=== PATIENT | female | born 1950 | race Caucasian/White ===

== ENCOUNTER 2017-04-20 04:20 | Emergency (ER) | payer OTHER, BC ==
[~2017-04-20] VITALS: Ht 157.5 cm; Wt 86.2 kg
[~2017-04-20 04:20] MED LIST: ALLDSR60 PO; CEPH500C PO
[2017-04-20 04:22] VITALS: Ht 157.5 cm; Wt 86.2 kg
[2017-04-20] MEDS ORDERED: SODIUM CHLORIDE 0.9% 1000ML 1,000 ML IV STA (04:36)
[2017-04-20] MEDS ORDERED: ACETAMINOPHEN 500 MG TAB PO STA (04:36)
[2017-04-20 05:07] LABS: BASO % 0.2 %; BASO ABS # 0.03 K/uL (0-0.2); COMPLETE YES; EOS % 0.4 %; HEMATOCRIT 39.1 % (37-47); IG% 0.3 %; LYMPH % 4.5 %; LYMPH ABS # 0.62 K/uL (1.2-3.4); MEAN CELL VOLUME 97.8 fL (80-100); MEAN CORPUSCULAR HEMOGLOBIN 32.3 pg (25-34); MEAN PLATELET VOLUME 9.8 fL (7.4-10.4); NEUT % 88.6 %; PLATELET COUNT 234 K/uL (130-400); WHITE BLOOD COUNT 13.73 K/uL (4.8-10.8)
[2017-04-20 05:29] LABS: BUN/CREATININE RATIO 19.4 (10-20); C-REACTIVE PROTEIN 7.74 mg/dl (0-0.29); CALCIUM 8.7 mg/dl (8.5-10.1); CREATININE 0.75 mg/dl (0.60-1.20); POTASSIUM 3.7 mmol/L (3.5-5.1)
[2017-04-20] MEDS ORDERED: CEFTRIAXONE SOD INJ 1 GM ADDVIAL IV STA (05:40)
[2017-04-20] MEDS ORDERED: CEFD1CAP14 PO (05:50)
[2017-04-20] MEDS ORDERED: BCTCR TOP (05:50)
--- NOTE | 2017-04-20 05:51 | EMERGENCY ROOM VISIT NOTE ---
History Report prepared by Loreta: Vangie Rodriguez Under the Supervision of: Dr. Sunny Thompson M.D. First contact with patient: 04:29 Chief Complaint: ALLERGIC REACTION Stated Complaint: ALLERGIC REACTION History of Present Illness The patient is a 67 year old female who presents to the Emergency Room with complaints of constant facial swelling beginning one day ago. She feels that her symptoms are related to an allergic reaction. She reports trouble with breathing. The patient also complains of a productive cough, and states that she coughed up a large amount of sputum this morning. She denies other rashes, dry lips, or swollen lips. The patient takes Mucinex, and Sloane for seasonal allergies. She is allergic to Zyrtec. Source of History: patient Onset: one day ago Position: head (face) Quality: other (swelling) Timing: constant Associated Symptoms: + cough (productive) Note: The patient denies lip swelling or dry lips. Review of Systems See HPI for pertinent positives & negatives. A total of 10 systems reviewed and were otherwise negative. Past Medical & Surgical Medical Problems: (1) No Known Active Medical Problems (2) Pneumonia (3) Sinusitis Surgical Problems: (1) History of appendectomy Family History FH: HTN (hypertension) FH: cancer FH: kidney disease FHx: diabetes mellitus FHx: heart disease Social History Smoking Status: Former Smoker Housing Status: lives with family Occupation Status: unemployed Current/Historical Medications Scheduled Cefdinir (Omnicef), 300 MG PO Q12H Cephalexin Monohydrate (Keflex), 500 MG PO QID Fexofenadine/Pseudoephedrine (Sloane-D 12HR 60/120MG), 1 TAB PO Q12PRN Mupirocin (Bactroban), 1 APPLN TOP TID Allergies Coded Allergies: Adhesives (Verified Allergy, Mild, 12/31/13) Cetirizine (Verified Allergy, Mild, LOC, 12/31/13) Iodine (Verified Allergy, Mild, HIVES SWELLING, 12/31/13) Pseudoephedrine (Verified Allergy, Mild, HYPERACTIVE, 12/31/13) Physical Exam Vital Signs Date Time Temp Pulse Resp B/P Pulse Ox O2 Delivery O2 Flow Rate FiO2 04/20/17 06:20 37.5 89 18 138/77 96 04/20/17 05:04 Room Air 04/20/17 04:22 38.1 109 20 170/81 94 Room Air Physical Exam GENERAL: Patient is uncomfortable and in mild distress. HEENT: No acute trauma, normocephalic atraumatic, mucous membranes moist, no nasal congestion, no scleral icterus. NECK: No stridor, no adenopathy, no meningismus, trachea is midline. LUNGS: No dyspnea. Clear to auscultation and equal bilaterally. No wheeze, no rhonchi. HEART: Tachycardic rate with a regular rhythm. No murmurs, rubs, gallops appreciated. ABDOMEN: Soft, nontender, bowel sounds positive, no masses appreciated, no peritonitis. BACK: No midline tenderness, no CVA tenderness EXTREMITIES: Normal motion all extremities, no cyanosis, no edema. NEUROLOGIC: Alert and oriented, no acute motor or sensory deficits, no focal weakness, cranial nerves grossly intact. SKIN: dark erythema over bilateral maxillary sinuses extending over nose and forehead into hairline. Impetigo-like blistering over the bridge of the nose. No conjunctival involvement. Medical Decision & Procedures Laboratory Results 04/20/17 04:40 Red Blood Count 4.00, Mean Corpuscular Volume 97.8, Mean Corpuscular Hemoglobin 32.3, Mean Corpuscular Hemoglobin Concent 33.0, Mean Platelet Volume 9.8, Neutrophils (%) (Auto) 88.6, Lymphocytes (%) (Auto) 4.5, Monocytes (%) (Auto) 6.0, Eosinophils (%) (Auto) 0.4, Basophils (%) (Auto) 0.2, Neutrophils # (Auto) 12.15, Lymphocytes # (Auto) 0.62, Monocytes # (Auto) 0.83, Eosinophils # (Auto) 0.06, Basophils # (Auto) 0.03 04/20/17 04:40 Test 04/20/17 04:40 04/20/17 04:55 White Blood Count 13.73 K/uL (4.8-10.8) Red Blood Count 4.00 M/uL (4.2-5.4) Hemoglobin 12.9 g/dL (12.0-16.0) Hematocrit 39.1 % (37-47) Mean Corpuscular Volume 97.8 fL (80-100) Mean Corpuscular Hemoglobin 32.3 pg (25-34) Mean Corpuscular Hemoglobin Concent 33.0 g/dl (32-36) Platelet Count 234 K/uL (130-400) Mean Platelet Volume 9.8 fL (7.4-10.4) Neutrophils (%) (Auto) 88.6 % Lymphocytes (%) (Auto) 4.5 % Monocytes (%) (Auto) 6.0 % Eosinophils (%) (Auto) 0.4 % Basophils (%) (Auto) 0.2 % Neutrophils # (Auto) 12.15 K/uL (1.4-6.5) Lymphocytes # (Auto) 0.62 K/uL (1.2-3.4) Monocytes # (Auto) 0.83 K/uL (0.11-0.59) Eosinophils # (Auto) 0.06 K/uL (0-0.5) Basophils # (Auto) 0.03 K/uL (0-0.2) RDW Standard Deviation 46.0 fL (36.4-46.3) RDW Coefficient of Variation 12.9 % (11.5-14.5) Immature Granulocyte % (Auto) 0.3 % Immature Granulocyte # (Auto) 0.04 K/uL (0.00-0.02) Anion Gap 6.0 mmol/L (3-11) Est Creatinine Clear Calc Drug Dose 73.2 ml/min Estimated GFR () 94.9 Estimated GFR (Non- 81.9 BUN/Creatinine Ratio 19.4 (10-20) Calcium Level 8.7 mg/dl (8.5-10.1) C-Reactive Protein 7.74 mg/dl (0-0.29) Bedside Lactic Acid Venous 1.12 mmol/L (0.90-1.70) Laboratory results as reviewed by me. Medications Administered Medications (Trade) Dose Ordered Sig/Christopher Route Start Time Stop Time Status Last Admin Dose Admin Sodium Chloride (Nss 1000ml) 1,000 ml @ 999 mls/hr Q1H1M STAT IV 04/20/17 04:36 04/20/17 05:36 DC 04/20/17 04:36 999 MLS/HR Acetaminophen (Tylenol Tab) 1,000 mg NOW STAT PO 04/20/17 04:36 04/20/17 04:37 DC 04/20/17 04:53 1,000 MG Ceftriaxone Sodium (Rocephin Inj) 1 gm NOW STAT IV 04/20/17 05:40 04/20/17 05:41 DC 04/20/17 05:40 1 GM ED Course 0432: The patient was evaluated in room B10. A complete history and physical exam was performed. 0436: Ordered Tylenol Tab 1,000 mg PO, Sodium Chloride 1,000 ml @ 999 mls/hr, IV. 0540: Ordered Rocephin Inj 1 gm IV. 0605: Reevaluated the patient. Discussed results and discharge instructions: she verbalized understanding and agreement. The patient is ready for discharge. Medical Decision Differential: Contact Dermatitis, Viral Exanthum, Urticaria, Allergic Reaction, SJS, Toxic Epidermal Necrolysis, Erythema Multiforme, Cellulitis, Scabies, HSV, Varicella, Zoster, Eczema, Staph Scalded Skin, Fungal, amongst other pathologies entertained. 67 yr old female arrives with complaint of bilateral facial allergic reaction. By exam this is clearly cellulitic infection. Vitals reveal mild tachy with fever. Lactic acid looks OK and not hypotensive. The exam is consistent with erysipelas with added mild possible impetigo over bridge of nose. It is not herpetic in nature. There is no crepitus. She is not in septic shock. I suspect this is strep species, which may even be from sinus infection. She has elevated CRP and mild elevation WBC. I discussed fact she would meet criteria for inpatient IV abx, however she makes clear she would like to return home. She feels comfortable watching this closely at home. I have marked area of cellulitis and she is aware of symptoms requiring immediate return to ED. She is aware there is a chance she will worsen. We will treat with IV Rocephin to start and then continue with omnicef as outpatient for increased coverage. Impression Primary Impression: Erysipelas Additional Impression: Cellulitis, face Scribe Attestation The scribe's documentation has been prepared under my direction and personally reviewed by me in its entirety. I confirm that the note above accurately reflects all work, treatment, procedures, and medical decision making performed by me. Departure Information Dispostion Home / Self-Care Prescriptions Mupirocin (Bactroban) 15 Gm Cr 1 APPLN TOP TID for 10 Days, #30 GM Prov: Sunny Thompson M.D. 04/20/17 Cefdinir (Omnicef) 300 Mg Cap 300 MG PO Q12H for 10 Days, #20 CAP Prov: Sunny Thompson M.D. 04/20/17 Referrals Wes Flores M.D. (PCP) Patient Instructions ED Cellulitis Facial, [facility] Problem Qualifiers
[2017-04-20 06:20] VITALS: BP 138/77; PULSE 89; TEMP 37.5; O2SAT 96
== END 2017-04-20 06:25 | disposition home or self-care (01) ==
LOC: C.EDB 04:21
DX: A46 Erysipelas (principal); L03.211 Cellulitis of face; Z86.19 Personal history of other infectious and parasitic diseases; Z90.49 Acquired absence of other specified parts of digestive tract; Z87.891 Personal history of nicotine dependence; Z79.899 Other long term (current) drug therapy; Z88.8 Allergy status to other drugs, medicaments and biological substances; Z91.041 Radiographic dye allergy status; Z91.09 Other allergy status, other than to drugs and biological substances; Z82.49 Family history of ischemic heart disease and other diseases of the circulatory system; Z80.9 Family history of malignant neoplasm, unspecified; Z84.1 Family history of disorders of kidney and ureter; Z83.3 Family history of diabetes mellitus

== ENCOUNTER 2017-04-22 10:26 | Inpatient (IN) | payer OTHER, BC ==
[~2017-04-22] VITALS: Ht 158.8 cm; Wt 86.5 kg
[~2017-04-22 10:26] MED LIST changes: +BCTCR TOP; +CEFD1CAP14 PO
[2017-04-22 11:07] VITALS: BP 146/79; PULSE 66; TEMP 36.8; O2SAT 97
[2017-04-22] MEDS ORDERED: NAPR1TAB9 PO (11:58)
[2017-04-22] MEDS ORDERED: ACET-1311 PO (11:58)
[2017-04-22] MEDS ORDERED: ASPI81TA28 PO (11:58)
--- NOTE | 2017-04-22 11:58 | History and Physical ---
History & Physical Date & Time of Service: April 22, 2017 at 11:54 Chief Complaint: Facial Cellulitis W/ Failed Outpatient Treatment Primary Care Physician: Wes Flores M.D. History of Present Illness Source: patient Patient has had a sinus infection since 04/10. Facial rash started 04/19. Came to ED 04/20 with worsened rash, orbital swelling causing difficulty in opening eyes, fevers (tmax 101), chills, sweats, SOB, tachycardia. Was given IV ceftriaxone in the ED and PO cefdinir on discharge, as per patient' s choice given improvement in ED. Resolution of fevers, and SOB and tachycardia since ED discharge. Rash improved on chin and lower cheeks - Demarcating lines mades in ED verified this. However, since then, has had cephalic spread noted up to hairline and with lateral spread to temples. Currently complaining that rash is pruritic, hot to touch, with intermittent burning. Pain scored as 6/10. Tylenol used for pain, and ice pack- which has been helpful. No changes in vision - no blurring, no halos/lights, double vision or photophobia. Has had ocular discharge with morning crusting. No headache or neck pain. Some ongoing exertional SOB, but not at rest. Also has productive cough with clear sputum. Past Medical/Surgical History Medical Problems: (1) Pneumonia Status: Resolved (2) Sinusitis Status: Resolved Surgical Problems: (1) History of appendectomy Status: Resolved Arash as a child DVT after h/o cardiac arrest with Percocet ?h/o of PE Family History FH: HTN (hypertension) FH: cancer FH: kidney disease FHx: diabetes mellitus FHx: heart disease Social History Smoking Status: Former Smoker (Ex smoker of 34 years ago, with 10 pack year history) Smokeless Tobacco Use: No Alcohol Use: socially (Holidays) Drug Use: none Housing status: lives with family Occupational Status: unemployed Immunizations History of Influenza Vaccine: Yes History of Tetanus Vaccine?: Yes History of Pneumococcal: Yes History of Hepatitis B Vaccine: Yes Multi-Drug Resistant Organisms History of MDRO: No Allergies Coded Allergies: Oxycodone (Verified Allergy, Severe, ANAPHYLAXIS, 04/22/17) patient "went out" Spoke grzegorz Parry ([facility]) who confirmed w patient that she can tolerate acetaminophen Adhesives (Verified Allergy, Mild, 12/31/13) Cetirizine (Verified Allergy, Mild, LOC, 12/31/13) Iodine (Verified Allergy, Mild, HIVES SWELLING, 12/31/13) Pseudoephedrine (Verified Allergy, Mild, HYPERACTIVE, 12/31/13) Home Medications Scheduled Aspirin (Aspirin Ec), 81 MG PO DAILY Cefdinir (Omnicef), 300 MG PO Q12H Cephalexin Monohydrate (Keflex), 500 MG PO QID Fexofenadine/Pseudoephedrine (Sloane-D 12HR 60/120MG), 1 TAB PO Q12PRN Mupirocin (Bactroban), 1 APPLN TOP TID Naproxen (Aleve), 220 MG PO DAILY Scheduled PRN Acetaminophen (Tylenol), 650 MG PO QD PRN for Pain Review of Systems Constitutional: + fatigue, No chills, No fever, No sweats, No weakness Eyes: + discharge, + eye pain, No diplopia, No redness, No worsening of vision ENT: + nasal symptoms (Congestion), No dental problems, No hearing loss, No sore throat, No tinnitus, No unusual epistaxis Respiratory: + cough (worsened), + dyspnea on exertion, + sputum, No dyspnea at rest, No hemoptysis, No wheezing Cardiovascular: + orthopnea (because of facial and nasal fluid. Normal previously), No PND, No chest pain, No claudication, No edema, No palpitations Abdomen: No constipation, No diarrhea, No nausea, No pain, No vomiting Musculoskeletal: No joint pain, No muscle pain Genitourinary - Female: No dysuria, No hematuria Neurologic: No balance problems, No numbness/tingling Integumentary: + color change, + itch, + new/changing skin lesions, + rash Allergic / Immunologic: + hives, + seasonal allergies (mold, mildew, dust, pollen, shellfish), No environmental allergies, No pet sensitivities Physical Exam Vital Signs Date Time Temp Pulse Resp B/P Pulse Ox O2 Delivery O2 Flow Rate FiO2 04/22/17 13:01 Room Air General Appearance: WD/WN, no apparent distress Head: normocephalic, atraumatic Eyes: PERRL, EOMI, + pertinent finding (Periorbital swelling with improvement in eyelid swelling as per patient and daughter) ENT: normal ENT inspection, hearing grossly normal, pharynx normal Neck: supple, thyroid normal, + pertinent finding (cervical adenopathy L>R) Respiratory/Chest: lungs clear, normal breath sounds, no respiratory distress, no accessory muscle use Cardiovascular: regular rate, rhythm, no edema, no murmur, normal peripheral pulses Abdomen/GI: normal bowel sounds, non tender, soft, no organomegaly Extremities/Musculoskelatal: normal inspection, no calf tenderness, normal capillary refill, no pedal edema Neurologic/Psych: alert, normal mood/affect, oriented x 3 Skin: + pertinent finding (Erythema on cheeks B/L extending over bridge of nose and to hairline temporally and superiorly. Rash blanches with pressure. No petechiae. Not seeping. Hot to touch) Diagnostics Laboratory Results Results Past 24 Hours Test 04/22/17 13:54 Range/Units White Blood Count 5.83 4.8-10.8 K/uL Red Blood Count 3.64 4.2-5.4 M/uL Hemoglobin 12.2 12.0-16.0 g/dL Hematocrit 36.1 37-47 % Mean Corpuscular Volume 99.2 80-100 fL Mean Corpuscular Hemoglobin 33.5 25-34 pg Mean Corpuscular Hemoglobin Concent 33.8 32-36 g/dl Platelet Count 232 130-400 K/uL Mean Platelet Volume 9.8 7.4-10.4 fL Neutrophils (%) (Auto) 65.8 % Lymphocytes (%) (Auto) 20.8 % Monocytes (%) (Auto) 9.3 % Eosinophils (%) (Auto) 3.4 % Basophils (%) (Auto) 0.5 % Neutrophils # (Auto) 3.84 1.4-6.5 K/uL Lymphocytes # (Auto) 1.21 1.2-3.4 K/uL Monocytes # (Auto) 0.54 0.11-0.59 K/uL Eosinophils # (Auto) 0.20 0-0.5 K/uL Basophils # (Auto) 0.03 0-0.2 K/uL RDW Standard Deviation 48.1 36.4-46.3 fL RDW Coefficient of Variation 13.1 11.5-14.5 % Immature Granulocyte % (Auto) 0.2 % Immature Granulocyte # (Auto) 0.01 0.00-0.02 K/uL Prothrombin Time 10.3 9.0-12.0 SECONDS Prothromb Time International Ratio 1.0 0.9-1.1 Activated Partial Thromboplast Time 27.8 21.0-31.0 SECONDS Partial Thromboplastin Ratio 1.1 Sodium Level 144 136-145 mmol/L Potassium Level 3.7 3.5-5.1 mmol/L Chloride Level 108 98-107 mmol/L Carbon Dioxide Level 29 21-32 mmol/L Anion Gap 7.0 3-11 mmol/L Blood Urea Nitrogen 16 7-18 mg/dl Creatinine 0.72 0.60-1.20 mg/dl Est Creatinine Clear Calc Drug Dose 77.2 ml/min Estimated GFR () 99.7 Estimated GFR (Non- 86.1 BUN/Creatinine Ratio 22.9 10-20 Random Glucose 105 70-99 mg/dl Calcium Level 9.2 8.5-10.1 mg/dl Impression Assessment and Plan 67 year old female with PMHx of sinus infections presents with worsening facial Cellulitis after failure of outpatient therapy on cefdinir Cellulitis - erythematous, pruritic, tender. completed 3 days treatment with cefdinir - ENT consult - Empiric IV clindamycin 600mg q8h - ID consulted - CT maxillofacial with contrast - pretreated with prednisone 50mg 6 hours prior and prednisone 50mg + IV diphenhydramine 25mg 1 hour prior due to iodine allergy - Mupirocin 2% ointment - PO Diphenhydramine 25mg PRN pruritis - Trend CBC, BMP Dry eyes - Lubricating eye drops Nasal congestion - Claritin VTE Prophylaxis - Enoxaparin 40mg SC Full Code Level of Care Med/Surg Advanced Directives Existing Advance Directive: No Existing Living Will: No Existing Power of Energy Technician: No Existing Health Care Proxy: No Resuscitation Status FULL RESUSCITATION VTE Prophylaxis VTE Risk Assessment Done? Y/N: Yes Risk Level: Moderate Given or contraindicated: Enoxaparin (Lovenox)SQ Social Service Consult None Apply History Resident Physician Supervision Note: I was present with Dr. Kay during the history and exam. I discussed the case with the resident and agree with the findings and plan as documented in the note. Any exceptions or clarifications are listed here. 67 y/o female with h/o cardiac arrest 2/2 percocet and h/o DVT/?PE referred to [facility] [place] for direct admission by Dr. Bladimir Ayala following failure of outpatient therapy for facial cellulitis with underlying bacterial rhinosinusitis. Following IV treatment in the ED with marginal improvement, PO therapy resulted in progressive hot, tender facial rash which extended up the face and a mild occiput headache. Accompanied by congestion/PND and a mildly productive cough of PND. Reports no fever, vision/hearing changes, dizziness, neck pain, CP/SOB. General Appearance: WD/WN, no apparent distress Eye Exam: bilateral eye EOMI, bilateral eye PERRL Ears, Nose, Throat: hearing grossly normal, TMs normal, pharynx normal, nasal congestion Neck: non-tender, full range of motion, supple Respiratory: chest non-tender, lungs clear, normal breath sounds, no respiratory distress Cardiovascular: normal peripheral pulses, regular rate, rhythm, no edema, no murmur Neurologic/Psychiatric: contract loader II-XII nml as tested, alert, normal mood/affect, oriented x 3 Skin Characteristics: other (erythematous swollen, warm rash of the b/l face from the inframaxillary region extending to the scalp which is blanching) Assessment/Plan 67 y/o female h/o recent sinusitis w/ failed outpatient therapy for facial cellulitis Facial cellulitis - otolaryngology consulted, input appreciated - CT face w/w/o w/ prep 2/2 iodine rxn, IV clindamycin, recheck CBC, BMP in AM Eye irritation w/o EOM involvement - eyedrops Nasal congestion w/ recent ABRS - H1 sherly therapy, clinda as above, afrin ( short course), fluticasone nasal spray daily DVT PPX - Lovenox FULL CODE Resident Tracking Resident Involvement: Resident Care Provided Care Provided: Adult Hospital Medicine
[2017-04-22] MEDS ORDERED: DiphenhydrAMINE HCL 50 MG/ML VIAL IV STA (12:31)
[2017-04-22] MEDS ORDERED: ACETAMINOPHEN 325 MG TAB PO PRN ×2 (12:45→13:00)
[2017-04-22] MEDS ORDERED: ONDANSETRON INJ 2 MG/ML 2 ML VIAL IV PRN (13:00)
[2017-04-22] MEDS ORDERED: ALUMINUM/MAGNESIUM/SIMETH (MAALOX MAX) 30 ML UDC PO PRN (13:00)
[2017-04-22] MEDS ORDERED: MAGNESIUM HYDROXIDE SUSP 30 ML UDC PO PRN (13:00)
[2017-04-22] MEDS ORDERED: POLYETHYLENE (MIRALAX) 17 GM PACK PO PRN (13:00)
[2017-04-22 13:01] VITALS: Ht 158.8 cm; Wt 86.5 kg
[2017-04-22] MEDS ORDERED: ARTIFICIAL TEARS OP OINT 3.5 GM TUBE OP PRN (13:30)
[2017-04-22 14:05] LABS: BASO % 0.5 %; BASO ABS # 0.03 K/uL (0-0.2); COMPLETE YES; EOS % 3.4 %; HEMATOCRIT 36.1 % (37-47); IG% 0.2 %; LYMPH % 20.8 %; LYMPH ABS # 1.21 K/uL (1.2-3.4); MEAN CELL VOLUME 99.2 fL (80-100); MEAN CORPUSCULAR HEMOGLOBIN 33.5 pg (25-34); MEAN CORPUSCULAR HGB CONC 33.8 g/dl (32-36); MEAN PLATELET VOLUME 9.8 fL (7.4-10.4); MONO % 9.3 %; NEUT % 65.8 %; PLATELET COUNT 232 K/uL (130-400); RED BLOOD COUNT 3.64 M/uL (4.2-5.4); WHITE BLOOD COUNT 5.83 K/uL (4.8-10.8)
[2017-04-22 14:20] LABS: PARTIAL THROMBOPLASTIN RATIO 1.1; PROTHROMBIN TIME (PATIENT) 10.3 SECONDS (9.0-12.0)
[2017-04-22 14:23] LABS: BUN/CREATININE RATIO 22.9 (10-20); CALCIUM 9.2 mg/dl (8.5-10.1); CREATININE 0.72 mg/dl (0.60-1.20); POTASSIUM 3.7 mmol/L (3.5-5.1)
[2017-04-22] MEDS: MUPIROCIN 2% OINT 22 GM TUBE TOP SCH ×2 (14:43→21:31)
[2017-04-22] MEDS ORDERED: NURSING VERBAL MED ORDER ONE (14:45)
[2017-04-22 15:00] VITALS: BP 164/85; PULSE 72; TEMP 36.7; O2SAT 95
[2017-04-22] MEDS: CLINDAMYCIN IV 600 MG in DEXTROSE 5% ADD-VANTAGE 50ML 50 ML IV SCH ×2 (15:31→21:31)
--- NOTE | 2017-04-22 15:51 | Medical Consult ---
Consultation Date of Consultation: April 22, 2017. Attending Physician: Rocio Grigsby DO History of Present Illness 67 yo female who was admitted to medical service for facial cellulitis. Apparently came to the ED on 04/20/17 for the same, was treated with IV rocpehin which patient reports made her feel slightly better. She was given the option for admission or outpatient therapy. She elected outpatient therapy. No imaging done at that time. She states that the erythema has improved on the lower side of the face but states yesterday some forehead erythema started. She denies any visual issues. States that the swelling around her eyes is actually improved after being on the antibiotic therapy. She denies any pimples or cuts on the face. Denies any issues with her teeth, no sore teeth. She does state that she tried a new herbal medication prior to the onset of the facial erythema. Has had previous rhinoplasty and sinus surgery many years ago in [place]. Gets 1-2 sinus infections yearly. States had fever and chills prior to starting antibiotic, this has resolved. States that the nose was swollen prior to the antibiotics she was on, this has improved as well. Essentially only new finding is forehead erythema. She also states that she had some nasal congestion around the 25th, but this too has resolved. Past Medical/Surgical History Medical Problems: (1) Cellulitis, face Status: Acute (2) Erysipelas Status: Acute Family History FH: HTN (hypertension) FH: cancer FH: kidney disease FHx: diabetes mellitus FHx: heart disease Social History Smoking Status: Former Smoker Smokeless Tobacco Use: No Alcohol Use: socially (Holidays) Drug Use: none Housing Status: lives with family Occupation Status: unemployed Allergies Coded Allergies: Oxycodone (Verified Allergy, Severe, ANAPHYLAXIS, 04/22/17) patient "went out" Spoke grzegorz Parry (RN) who confirmed w patient that she can tolerate acetaminophen Adhesives (Verified Allergy, Mild, 12/31/13) Cetirizine (Verified Allergy, Mild, LOC, 12/31/13) Iodine (Verified Allergy, Mild, HIVES SWELLING, 12/31/13) Pseudoephedrine (Verified Allergy, Mild, HYPERACTIVE, 12/31/13) Current Inpatient Medications Current Inpatient Medications Medications (Trade) Dose Ordered Sig/Christopher Route Start Time Stop Time Status Last Admin Dose Admin Aspirin (Ecotrin Tab) 81 mg DAILY PO 04/23/17 09:00 05/23/17 08:59 Mupirocin (Bactroban 2% Oint) 1 appln TID TOP 04/22/17 14:00 05/22/17 13:59 04/22/17 14:43 1 APPLN Miscellaneous Information (Order Awaiting Action) 1 ea QS N/A 04/22/17 16:00 05/22/17 15:59 Enoxaparin Sodium (Lovenox Inj) 40 mg Q24H SQ 04/22/17 18:00 05/22/17 17:59 Acetaminophen (Tylenol Tab) 650 mg Q4H PRN PO 04/22/17 13:00 05/22/17 12:59 Al Hydrox/Mg Hydrox/Simethicone (Maalox Max Susp) 15 ml Q4H PRN PO 04/22/17 13:00 05/22/17 12:59 Magnesium Hydroxide (Milk Of Magnesia Susp) 30 ml Q6H PRN PO 04/22/17 13:00 05/22/17 12:59 Polyethylene (Miralax Powder Packet) 17 gm DAILY PRN PO 04/22/17 13:00 05/22/17 12:59 Ondansetron HCl (Zofran Inj) 4 mg Q6H PRN IV 04/22/17 13:00 05/22/17 12:59 Artificial Tears (Lacri-Lube Oph Oint) 1 appln Q6 PRN OP 04/22/17 13:30 05/22/17 13:29 Prednisone (PredniSONE TAB) 50 mg TODAY@1999 ONCE PO 04/22/17 20:00 04/22/17 20:01 Diphenhydramine HCl 25 mg 25 mg TODAY@2000 ONCE IV 04/22/17 20:00 04/22/17 20:01 Clindamycin Phosphate/Dextrose (Cleocin Iv/ Dextrose Add-[place] 50ML) 54 ml @ 100 mls/hr Q8@0600,1400,2200 IV 04/22/17 15:15 04/24/17 13:59 04/22/17 15:31 100 MLS/HR Review of Systems Constitutional: No chills, No fatigue, No fever, No problem reported, No sweats , No weakness, No weight loss Eyes: No diplopia, No discharge, No eye pain, No problem reported, No redness, No worsening of vision ENT: + problem reported (see HPI) Respiratory: No cough, No dyspnea at rest, No dyspnea on exertion, No hemoptysis, No problem reported, No shortness of breath, No sputum, No wheezing Cardiovascular: No PND, No chest pain, No claudication, No edema, No orthopnea , No palpitations, No problem reported Neurologic: No balance problems, No memory loss, No numbness/tingling, No paralysis, No problem reported, No vertigo, No weakness Integumentary: + itch Allergic / Immunologic: + environmental allergies Physical Exam Date Time Temp Pulse Resp B/P Pulse Ox O2 Delivery O2 Flow Rate FiO2 04/22/17 13:01 Room Air PROCEDURE Nasal endoscopy and laryngoscopy performed. Minimal nasal septal crusting on the right. Mucosa is healthy appearing. There is no erythema. Maxillary antrostomy is patent and maxillary sinus is healthy appearing. Ethmoid cavity is healthy appearing. There are no polyps, no mucopus. The left maxillary antrostomy is widely patent. Minimal mucoid drainage on the floor of the sinus. The ethmoid cavity is patent and healthy appearing, no mucopus or polyps. Nasopharynx normal appearing. Laryngoscopy revealed normal hypopharyngeal and laryngeal exam. No masses or lesions. Vocal cord mobility was normal. General Appearance: WD/WN, no apparent distress Head: normocephalic, + pertinent finding (Bilateral forehead erythema noted. ) Eyes: PERRL, EOMI, + pertinent finding (Bilateral supra and infra orbital edema and erytehma noted. ) ENT: hearing grossly normal, TMs normal, pharynx normal, + pertinent finding ( nasal dorsal erythema ) Neck: supple, no adenopathy Respiratory/Chest: no respiratory distress, no accessory muscle use Cardiovascular: no edema, no JVD Skin: + pertinent finding (facial erythema as described above. ) Laboratory Results Last 24 Hours Test 04/22/17 13:54 White Blood Count 5.83 K/uL Red Blood Count 3.64 M/uL Hemoglobin 12.2 g/dL Hematocrit 36.1 % Mean Corpuscular Volume 99.2 fL Mean Corpuscular Hemoglobin 33.5 pg Mean Corpuscular Hemoglobin Concent 33.8 g/dl Platelet Count 232 K/uL Mean Platelet Volume 9.8 fL Neutrophils (%) (Auto) 65.8 % Lymphocytes (%) (Auto) 20.8 % Monocytes (%) (Auto) 9.3 % Eosinophils (%) (Auto) 3.4 % Basophils (%) (Auto) 0.5 % Neutrophils # (Auto) 3.84 K/uL Lymphocytes # (Auto) 1.21 K/uL Monocytes # (Auto) 0.54 K/uL Eosinophils # (Auto) 0.20 K/uL Basophils # (Auto) 0.03 K/uL RDW Standard Deviation 48.1 fL RDW Coefficient of Variation 13.1 % Immature Granulocyte % (Auto) 0.2 % Immature Granulocyte # (Auto) 0.01 K/uL Prothrombin Time 10.3 SECONDS Prothromb Time International Ratio 1.0 Activated Partial Thromboplast Time 27.8 SECONDS Partial Thromboplastin Ratio 1.1 Sodium Level 144 mmol/L Potassium Level 3.7 mmol/L Chloride Level 108 mmol/L Carbon Dioxide Level 29 mmol/L Anion Gap 7.0 mmol/L Blood Urea Nitrogen 16 mg/dl Creatinine 0.72 mg/dl Est Creatinine Clear Calc Drug Dose 77.2 ml/min Estimated GFR () 99.7 Estimated GFR (Non- 86.1 BUN/Creatinine Ratio 22.9 Random Glucose 105 mg/dl Calcium Level 9.2 mg/dl Assessment & Plan 67 yo female with facial erythema and edema, resolving sinus infection - differential includes facial cellulitis, but would also consider working up for dermato/polymyositis as her rash pattern almost has a heliotropic pattern - IV abx per medical team, would recommend covering skin and head and neck (ie sinus quique) in the instance her recent sinusitis is the source - primary service has ordered CT max/face with contrast to be done tonight ( after pretreatment for iodine allergy). - recommend consider ID consult for assistance with antibiotic choice - recommend afrin nasal spray BID for 5 days - recommend daily nasal steroid spray - recommend saline spray several times daily.
[2017-04-22] MEDS: ENOXAPARIN 40 MG/0.4 ML SYR SQ SCH (18:41)
[2017-04-22] MEDS ORDERED: DiphenhydrAMINE HCL 50 MG/ML VIAL IV ONE (20:00)
[2017-04-22] MEDS ORDERED: OPTIRAY 320 IV PRN (20:00)
--- NOTE | 2017-04-22 21:36 | DIAGNOSTIC IMAGING REPORT ---
CT SCAN OF THE FACIAL BONES WITH IV CONTRAST CLINICAL HISTORY: Facial cellulitis. Erythema and swelling. COMPARISON STUDY: CT of the brain dated 12/13/2013. TECHNIQUE: High-resolution CT scan of the facial bones is performed following the IV administration of 92 cc of Optiray 320. Images are reviewed in the axial, sagittal, and coronal planes. The patient was premedicated for a reported history of contrast allergy. IV contrast was administered without complication. CT DOSE: 203.57 mGy.cm FINDINGS: The skeletal structures are osteopenic. There is no evidence of facial bone fracture. The bony orbits are intact and the orbital contents are within normal limits. There is no intra or extraconal mass lesion. The extraocular muscles are normal and symmetric. The zygomatic arches, nasal bones, and pterygoid plates are preserved. The maxilla and mandible are intact. There are no layering blood products within the paranasal sinuses. There is evidence of previous paranasal sinus surgery. Mild mucosal thickening seen within the left frontal sinus, the ethmoid resection cavity, and the maxillary antra. The antrostomies are widely patent. The mastoid air cells are well pneumatized. The visualized calvarium and upper cervical spine are maintained. Multilevel cervical spondylosis is partially visualized. Partially imaged brain parenchyma is within normal limits. The carotid arteries and jugular veins are widely patent bilaterally. There is minimal bilateral periorbital and premalar soft tissue induration. No organized fluid collection is seen to suggest abscess. IMPRESSION: 1. There is no evidence of facial bone fracture. 2. Findings suggest minimal bilateral periorbital and premalar cellulitis. No organized fluid collection is seen to suggest abscess. 3. The bony orbits are intact and the orbital contents are normal in appearance. Electronically signed by: Shine Torres M.D. 04/22/2017 9:35 PM Dictated Date/Time: 04/22/2017 9:28 PM
[2017-04-22 22:50] VITALS: BP 137/82; PULSE 78; TEMP 36.6; O2SAT 96
[2017-04-23] MEDS: CLINDAMYCIN IV 600 MG in DEXTROSE 5% ADD-VANTAGE 50ML 50 ML IV SCH ×3 (05:42→19:02)
[2017-04-23 06:09] LABS: HEMATOCRIT 35.6 % (37-47); MEAN CELL VOLUME 97.8 fL (80-100); MEAN CORPUSCULAR HEMOGLOBIN 34.1 pg (25-34); MEAN CORPUSCULAR HGB CONC 34.8 g/dl (32-36); MEAN PLATELET VOLUME 9.8 fL (7.4-10.4); PLATELET COUNT 239 K/uL (130-400); RED BLOOD COUNT 3.64 M/uL (4.2-5.4); WHITE BLOOD COUNT 6.39 K/uL (4.8-10.8)
[2017-04-23 06:53] LABS: BUN/CREATININE RATIO 24.4 (10-20); CREATININE 0.63 mg/dl (0.60-1.20)
[2017-04-23 07:02] VITALS: BP 127/77; PULSE 69; TEMP 36.7; O2SAT 96
[2017-04-23] MEDS: MUPIROCIN 2% OINT 22 GM TUBE TOP SCH (07:19)
--- NOTE | 2017-04-23 07:49 | Family Medicine Progress Note ---
Progress Note Date of Service April 23, 2017. Objective Vital Signs Date Time Temp Pulse Resp B/P Pulse Ox O2 Delivery O2 Flow Rate FiO2 04/23/17 07:02 36.7 69 16 127/77 96 Room Air 04/22/17 22:50 36.6 78 16 137/82 96 Room Air 04/22/17 19:40 Room Air 04/22/17 15:00 36.7 72 18 164/85 95 Room Air 04/22/17 13:01 Room Air 04/22/17 12:30 Room Air 04/22/17 11:07 36.8 66 18 146/79 97 Room Air Resident Tracking Resident Involvement: Resident Care Provided Care Provided: Adult Hospital Medicine
[2017-04-23] MEDS ORDERED: SODIUM CHLORIDE 0.65% NA SOLN 45 ML (OCEAN) PRN (08:00)
[2017-04-23] MEDS ORDERED: OXYMETAZOLINE HCL 0.05% NA SPR 15 ML BTL SCH (09:00)
[2017-04-23] MEDS ORDERED: FLUTICASONE PROPIONATE NA SPR 16 GM BTL SCH (09:00)
[2017-04-23] MEDS ORDERED: ASPIRIN 81 MG ECTAB PO SCH (09:00)
--- NOTE | 2017-04-23 09:24 | Progress Note ---
Progress Note Date of Service April 23, 2017. Progress Note ID Consult Dictated #[id number] A/P: 1. Facial Cellulitis -pt clinically improved, -continue with clinda, would give 14 days total, can transition to po when d/c, 300mg po tid -suggest probiotics as well -thank you
--- NOTE | 2017-04-23 12:21 | Ears,Nose,Throat Progress Note ---
Progress Note Date of Service April 23, 2017. Subjective Pt evaluation today including: conversation w/ patient, physical exam, chart review, lab review Patient doing better today. Had CT sinus last night. I reviewed the report and the images. She has very minimal sinus disease. Ethmoid cavities and maxillary antrostomies are widely patent. Had reaction to topical antibiotic cream overnight. Has remained afebrile and white count remains normal. Objective Vital Signs Date Time Temp Pulse Resp B/P Pulse Ox O2 Delivery O2 Flow Rate FiO2 04/23/17 11:08 Room Air 04/23/17 07:02 36.7 69 16 127/77 96 Room Air 04/22/17 22:50 36.6 78 16 137/82 96 Room Air 04/22/17 19:40 Room Air 04/22/17 15:00 36.7 72 18 164/85 95 Room Air 04/22/17 13:01 Room Air 04/22/17 12:30 Room Air Physical Exam General Appearance: WD/WN, no apparent distress Eyes: PERRL, EOMI, + pertinent finding (periobiral edema and erythema stable if not mildly better. ) ENT: hearing grossly normal, + pertinent finding (nasal dorsal erythema stable if not mildly better) Skin: + pertinent finding (Forehead and periorbital erythema stable if not mildly improved from yesterday. Some desquemation of skin noted in malar region and forehead. ) Laboratory Results Last 24 Hours Test 04/22/17 13:54 04/23/17 05:37 White Blood Count 5.83 K/uL 6.39 K/uL Red Blood Count 3.64 M/uL 3.64 M/uL Hemoglobin 12.2 g/dL 12.4 g/dL Hematocrit 36.1 % 35.6 % Mean Corpuscular Volume 99.2 fL 97.8 fL Mean Corpuscular Hemoglobin 33.5 pg 34.1 pg Mean Corpuscular Hemoglobin Concent 33.8 g/dl 34.8 g/dl Platelet Count 232 K/uL 239 K/uL Mean Platelet Volume 9.8 fL 9.8 fL Neutrophils (%) (Auto) 65.8 % Lymphocytes (%) (Auto) 20.8 % Monocytes (%) (Auto) 9.3 % Eosinophils (%) (Auto) 3.4 % Basophils (%) (Auto) 0.5 % Neutrophils # (Auto) 3.84 K/uL Lymphocytes # (Auto) 1.21 K/uL Monocytes # (Auto) 0.54 K/uL Eosinophils # (Auto) 0.20 K/uL Basophils # (Auto) 0.03 K/uL RDW Standard Deviation 48.1 fL 46.6 fL RDW Coefficient of Variation 13.1 % 12.9 % Immature Granulocyte % (Auto) 0.2 % Immature Granulocyte # (Auto) 0.01 K/uL Prothrombin Time 10.3 SECONDS Prothromb Time International Ratio 1.0 Activated Partial Thromboplast Time 27.8 SECONDS Partial Thromboplastin Ratio 1.1 Sodium Level 144 mmol/L 145 mmol/L Potassium Level 3.7 mmol/L 4.0 mmol/L Chloride Level 108 mmol/L 109 mmol/L Carbon Dioxide Level 29 mmol/L 26 mmol/L Anion Gap 7.0 mmol/L 10.0 mmol/L Blood Urea Nitrogen 16 mg/dl 15 mg/dl Creatinine 0.72 mg/dl 0.63 mg/dl Est Creatinine Clear Calc Drug Dose 77.2 ml/min 88.2 ml/min Estimated GFR () 99.7 106.8 Estimated GFR (Non- 86.1 92.2 BUN/Creatinine Ratio 22.9 24.4 Random Glucose 105 mg/dl 129 mg/dl Calcium Level 9.2 mg/dl 9.0 mg/dl Assessment and Plan 67 yo female with facial cellulitis, uncertain etiology at this point - still not entirely convinced this is related at all to sinusitis as she has just very minimal sinus disease on endoscopy and on CT scan. - would defer to primary service for further workup, could consider dermatology eval - no surgical intervention warranted - continue medical therapy per primary service - my associate Dr. Diaz is taking over call tomorrow morning. Would defer any further questions after that time to him
[2017-04-23] MEDS ORDERED: DEXAMETHASONE INJ 8 MG in SYRINGE 0 ML IV SCH (12:30)
[2017-04-23] MEDS ORDERED: DICLOFENAC SOD 1% GEL 100 GM TUBE EXT PRN (13:15)
[2017-04-23 15:10] VITALS: BP 153/93; PULSE 73; TEMP 36.7; O2SAT 95
[2017-04-23] MEDS: ENOXAPARIN 40 MG/0.4 ML SYR SQ SCH (18:23)
[2017-04-23] MEDS ORDERED: SACC250C3 PO (18:32)
[2017-04-23] MEDS ORDERED: SALI0.6510 (18:32)
[2017-04-23] MEDS ORDERED: PRED50TA PO (18:32)
[2017-04-23] MEDS ORDERED: DIPH25CA50 PO (18:32)
[2017-04-23] MEDS ORDERED: AFRIN (18:32)
[2017-04-23] MEDS ORDERED: CLC/300 PO (18:32)
[2017-04-23] MEDS ORDERED: VLTG EXT (18:32)
[2017-04-23] MEDS ORDERED: FLNIN (18:32)
--- NOTE | 2017-04-23 18:39 | INFECT. DISEASE CONSULTATION ---
DATE OF CONSULTATION: 04/23/2017 REQUESTING PHYSICIAN: Venkat Kay MD HISTORY OF PRESENT ILLNESS: This is a 67-year-old female who initially reported to the Emergency Room with facial cellulitis 1 day prior to admission. She was given a dose of Rocephin and sent home on Omnicef. She states this worked well but did not how much response to the Omnicef and felt that the cellulitis was worsening. She returned to the ER yesterday and was admitted and started on IV clindamycin. She is tolerating this well. She states that she has had a remarkable improvement in the appearance of her face as well as with pain and swelling on clindamycin. She does not have any abdominal pain or diarrhea. She currently has no complaints. She states she feels significantly better and is asking when she can go home. She did have a CAT scan of the face in the ER which did not show any evidence of abscess or bone involvement. She has also been evaluated by ENT. She denies any drainage or bleeding from the area. All remaining review of systems are reviewed and are unremarkable. PAST MEDICAL HISTORY: Significant for sinusitis. PAST SURGICAL HISTORY: Significant for appendectomy. 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 She also has history of cardiac arrest after taking Percocet. FAMILY HISTORY: Noncontributory. SOCIAL HISTORY: Significant for history of tobacco use. She drinks occasionally. She lives with family. She denies any drug use. ALLERGIES: OXYCODONE, ADHESIVE, CETIRIZINE, IODINE, PSEUDOEPHEDRINE. CURRENT MEDICATIONS: nasal spray, Flonase, Benadryl eye drops, Lovenox, clindamycin, mupirocin ointment, artificial tears, Tylenol, Maalox, milk of magnesia, MiraLax and Zofran. LABORATORY STUDIES: CBC reveals a white blood cell count of 6.3, hemoglobin 12.4, platelets are 239. Chemistry panel reveals a sodium of 145, potassium 4.0, chloride 109, bicarbonate 26, BUN 15, creatinine 0.6, glucose is 129. PHYSICAL EXAMINATION: VITAL SIGNS: She is afebrile, pulse 69, respiratory rate 16, blood pressure is 127/77, she is satting 96% on room air. GENERAL: She is awake, alert and oriented x3. She is in no acute distress. HEENT: Mucous membranes are moist. Extraocular muscles are intact. There is minimal facial erythema and swelling. There is no tenderness or warmth to palpation. Eye movements are intact. HEART: Regular. LUNGS: Clear. ABDOMEN: Soft, nontender, nondistended. There is no edema. Facial CAT scan was unremarkable for abscess and/or osteomyelitis. ASSESSMENT AND PLAN: Facial cellulitis. Certainly, she can continue with IV clindamycin while in the hospital and be transitioned to oral clindamycin at a dose of 300 mg 3 times daily for a duration of 14 days total. Thank you for this consultation. DEL
--- NOTE | 2017-04-23 18:49 | Discharge Instructions ---
Discharge Instructions Date of Service April 23, 2017. Admission Reason for Admission: Facial Cellulitis W/ Failed Outpatient Treatment Discharge Discharge Diagnosis / Problem: Facial cellulitis Discharge Goals Goal(s): Decrease discomfort, Diagnostic testing, Therapeutic intervention Activity Recommendations Activity Limitations: resume your previous activity . Instructions / Follow-Up Instructions / Follow-Up You were admitted with facial Cellulitis after failure of outpatient therapy on cefdinir. Both the ear/nose/throat and infectious disease specialists were consulted. You were started on IV and then transitioned to oral antibiotics. Continue clindamycin 300mg three times daily for another 13 days. Please complete the entire course of medication even if you feel better and even if the rash has completely resolved. Probiotics are also recommended while on this antibiotic to avoid getting c.Diff diarrhea. Consuming yoghurts and probiotic containing foods may also be helpful. On discharge, continue the afrin nasal spray and prednisone tablets for another 4 days. The Flonase and saline nasal sprays can be used indefinitely as you have allergies and these may improve symptoms. Use Benadryl as needed for itchiness. DO NOT PUT ANY CREAMS, SOAPS OR TOUCH/SCRATCH/PICK AT YOUR FACE - you may wash with water only, and dab dry with a towel. With regards to your other medications, attempt to limit your use of Aleve. Use only when in pain, or pending a day of significant walking. Ideally, usage of the Voltaren gel on any sore joints would be better as the same anti- inflammatory properties will act more locally in the areas the gel is applied to. Continue all other home meds as previous. Follow up with your PCP in the next week for ongoing assessment of improvement. Current Hospital Diet Patient's current hospital diet: Regular Diet Discharge Diet Recommended Diet: Regular Diet Pending Studies Studies pending at discharge: no Medical Emergencies . Who to Call and When: Medical Emergencies: If at any time you feel your situation is an emergency, please call 911 immediately. . Non-Emergent Contact Non-Emergency issues call your: Primary Care Provider . . "Provider Documentation" section prepared by Sri Kay. . VTE Core Measure Inpt VTE Proph given/why not?: Enoxaparin (Lovenox)SQ Resident Tracking Resident Involvement: Resident Care Provided Care Provided: Adult Hospital Medicine
--- NOTE | 2017-04-23 18:50 | Discharge Summary ---
Discharge Summary Date of Service April 23, 2017. (Alka. Kay MD) Discharge Summary Admission Date: April 22, 2017 at 10:50 Discharge Date: April 23, 2017 Discharge Disposition: Home Principal Diagnosis: Facial cellulitis Immunizations: Have You Had Influenza Vaccine: Yes History of Tetanus Vaccine?: Yes History of Pneumococcal: Yes History of Hepatitis B Vaccine: Yes (Alka. Kay MD) Medication Reconciliation New Medications: Clindamycin HCl (Clindamycin HCl) 300 Mg Cap 1 CAP PO TID for 13 Days, #39 CAP Prednisone (Prednisone) 50 Mg Tab 50 MG PO DAILY for 4 Days, #4 TAB Diclofenac Sod (Voltaren) 100 Appln/100 Gm Gel 1 APPLN EXT Q6H PRN for joint pain, #1 TUBE 3 Refills Diphenhydramine HCl (Diphenhydramine HCl) 25 Mg Cap 25 MG PO Q4H PRN for itch, #30 CAP Fluticasone Propionate (Fluticasone Propionate) 50 Mcg/Act Spr 2 SPRAYS NA BID PRN for Nasal Congestion, #1 BTL 3 Refills Oxymetazoline HCl (Afrin Nasal [place]) 75 Sprays/15 Ml [place] 1 SPRAYS NA BID for 4 Days, #1 SPRAY Saccharomyces Boulardii (Florastor) 250 Mg Cap 250 MG PO DAILY for 20 Days, #20 CAP Saline (Kerr Nasal [place]) 0.65 % Spr 2 SPRAYS NA Q4 PRN for nasal dryness, #1 BTL 3 Refills Continued Medications: Acetaminophen (Tylenol) 325 Mg Tab 650 MG PO QD PRN for Pain, TAB Aspirin (Aspirin Ec) 81 Mg Tab 81 MG PO DAILY Fexofenadine/Pseudoephedrine (Sloane-D 12HR 60/120MG) Tabcr 1 TAB PO Q12PRN, 0 Refills Naproxen (Aleve) 220 Mg Tab 220 MG PO DAILY, TAB Discontinued Medications: Cefdinir (Omnicef) 300 Mg Cap 300 MG PO Q12H for 10 Days, #20 CAP Cephalexin Monohydrate (Keflex) 500 Mg Cap 500 MG PO QID, #28 0 Refills Mupirocin (Bactroban) 15 Gm Cr 1 APPLN TOP TID for 10 Days, #30 GM Discharge Exam Patient well, denies acute issues. Does states that the peeling skin is itchy, but that the rash has otherwise shown significant improvement in her opinion. Keen for home. Review of Systems: Constitutional: No chills, No fever, No sweats Eyes: + problem reported, No diplopia, No discharge, No eye pain, No redness , No worsening of vision ENT: No dental problems, No nasal symptoms, No sore throat, No trouble swallowing Respiratory: No shortness of breath, No wheezing Cardiovascular: No chest pain, No edema, No palpitations Abdomen: No nausea, No pain, No vomiting Musculoskeletal: No joint pain, No muscle pain Genitourinary - Female: No dysuria, No hematuria Integumentary: + color change (less red), + itch, + problem reported (dry skin with peeling), + rash Physical Exam: General Appearance: WD/WN, no apparent distress Eyes: normal inspection, PERRL, EOMI, sclerae normal ENT: hearing grossly normal, pharynx normal Neck: supple, + adenopathy present Respiratory/Chest: lungs clear, normal breath sounds, no respiratory distress, no accessory muscle use Cardiovascular: regular rate, rhythm, no edema, no murmur, normal peripheral pulses Abdomen / GI: normal bowel sounds, non tender, soft, no organomegaly Extremities: normal inspection, no calf tenderness, normal capillary refill , no pedal edema Neurologic/Psychiatric: alert, normal mood/affect, oriented x 3 Skin: warm/dry, + pertinent finding (facial swelling and erythema - decreased, less red over slightly smaller area - malar and forehead) (Alka. Kay MD) Hospital Course 67 year old female with PMHx of sinus infections presents with worsening facial Cellulitis after failure of outpatient therapy on cefdinir Cellulitis - s/p 3 days treatment with cefdinir as outpatient - ENT consult, ID consult - CT maxillofacial with contrast 04/22: No evidence of facial bone fracture. Minimal bilateral periorbital and premalar cellulitis. No organized fluid collection is seen to suggest abscess. Bony orbits are intact and the orbital contents are normal in appearance. - IV clindamycin 600mg [id number] to PO clindamycin 300mg TID on discharge (14 day course total) with probiotics - Prednisone 50mg (5 day burst) - PO Diphenhydramine 25mg PRN pruritus - Advised to avoid creams, soaps, scrubbing or touching/scratching skin on face Dry eyes - Lubricating eye drops Nasal congestion - Claritin - Afrin spray BID (5 day course) + Flonase and saline nasal sprays Joint pain - Patient advised to avoid taking daily NSAIDs (Aleve) - Topical Voltaren gel advised as substitute unless pain significant VTE Prophylaxis - Enoxaparin 40mg SC Full Code Total Time Spent: Less than 30 minutes This includes examination of the patient, discharge planning, medication reconciliation, and communication with other providers. (Alka. Kay MD) Discharge Instructions Please refer to the electronic Patient Visit Report (Discharge Instructions) for additional information. (Alka. Kay MD) Additional Copies To Wes Flores M.D. Resident Tracking Resident Involvement: Resident Care Provided Care Provided: [facility] (Alka. Kay MD) History Resident Physician Supervision Note: I was present with Dr. Kay during the history and exam. I discussed the case with the resident and agree with the findings and plan as documented in the note. Any exceptions or clarifications are listed here. Significant improvement in facial redness and discomfort, though acutely worsened with administration of mupirocin and improved again w/ decadron. Reports no fever, chills, RODRIGES, vision/hearing changes, photophobia, neck pain, pharyngitis. Mild congestion w/ PND improved w/ nasal sprays. (Laurent Campos MD) General Appearance: WD/WN, no apparent distress Eye Exam: bilateral eye EOMI, bilateral eye PERRL Ears, Nose, Throat: TMs normal, pharynx normal, nasal congestion Neck: full range of motion, supple, normal inspection Respiratory: chest non-tender, lungs clear, normal breath sounds, no respiratory distress Skin Characteristics: other (diffuse improved facial erythema with decreased TTP and warmth and visible peeling) (Laurent Campos MD) Assessment/Plan 67 y/o female h/o recent sinusitis w/ failed outpatient therapy for facial cellulitis Facial cellulitis - otolaryngology consulted - CT face complete - clindamycin, complete pred burst Eye irritation w/o EOM involvement - eyedrops Nasal congestion w/ recent ABRS - H1 sherly therapy, afrin (short course), fluticasone nasal spray daily (Laurent Campos MD)
[2017-04-23 19:14] VITALS: BP 153/93; PULSE 73; TEMP 36.7; O2SAT 95
[2017-04-23] MEDS ORDERED: SILVER NITR/POTASSIUM NITRATE APPLICATOR EXT ONE (20:15)
[2017-04-24] MEDS ORDERED: SACCHAROMYCES BOUL (FLORASTOR) 250 MG CAP PO SCH (09:00)
== END 2017-04-23 20:16 | disposition home or self-care (01) | DRG 603 ==
LOC: C.3E 10:50
PROVIDERS: ADMIT Family Medicine; ATTEND Family Medicine
DX: L03.211 Cellulitis of face (principal); H04.129 Dry eye syndrome of unspecified lacrimal gland; R09.81 Nasal congestion; M25.50 Pain in unspecified joint; Z83.3 Family history of diabetes mellitus; Z82.49 Family history of ischemic heart disease and other diseases of the circulatory system; Z87.891 Personal history of nicotine dependence; Z79.82 Long term (current) use of aspirin; A46 Erysipelas; Z86.19 Personal history of other infectious and parasitic diseases; Z90.49 Acquired absence of other specified parts of digestive tract; Z79.899 Other long term (current) drug therapy; Z88.8 Allergy status to other drugs, medicaments and biological substances; Z91.041 Radiographic dye allergy status; Z91.09 Other allergy status, other than to drugs and biological substances; Z80.9 Family history of malignant neoplasm, unspecified; Z84.1 Family history of disorders of kidney and ureter